=== PATIENT | male | born 1985 | race Caucasian/White ===

== ENCOUNTER 2021-11-15 13:06 | Emergency (ER) | payer OTHER | END 2021-11-15 15:20 | disposition home or self-care (01) | LOC: ER1 13:06 | DX: U07.1 COVID-19 (principal); E78.5 Hyperlipidemia, unspecified; Z88.2 Allergy status to sulfonamides; F17.200 Nicotine dependence, unspecified, uncomplicated | CPT/HCPCS: 0240U; 99283 ==